=== PATIENT | female | born 1930 | race Caucasian/White ===

== ENCOUNTER 2018-03-15 17:50 | Emergency (ER) | payer MEDICARE, OTHER ==
[~2018-03-15] VITALS: Ht 165.1 cm; Wt 52.0 kg
[2018-03-15] MEDS ORDERED: SODIUM CHLORIDE 0.9% 1,000 ML IV ONE (19:10)
[2018-03-15] MEDS ORDERED: ONDANSETRON HCL 4MG/2ML INJ IV STA (19:10)
[2018-03-15] MEDS ORDERED: MORPHINE SULFATE 4 MG/ML CPJ (NOT FOR IM USE) IV STA (19:10)
[2018-03-15] MEDS ORDERED: MORPHINE SULFATE 2 MG/ML CPJ (NOT FOR IM USE) IV NR (19:45)
[2018-03-15 20:00] LABS: BASOPHILS % 0.2 % (0.0-2.0); CHLORIDE 104 mEq/L (98-107); HEMATOCRIT. 32.8 % (36.0-48.0); HEMOGLOBIN. 10.8 g/dL (12.0-16.0); LYMPHOCYTES % 7.2 % (20.0-50.0); MEAN CORPUSCULAR HEMOGLOBIN 29.8 pg (28.0-32.0); MEAN CORPUSCULAR VOLUME 90.3 fL (81.0-99.0); MEAN PLATELET VOLUME 9.2 fl (7.4-10.4); MONOCYTES % 11.5 % (2.0-8.0); NEUTROPHILS % 81.1 % (40.0-76.0); PLATELET 310 x1000/uL (130-400); RED BLOOD CELL COUNT 3.63 mill/uL (4.2-5.4)
[2018-03-15 20:01] LABS: INR 1.1; PROTHROMBIN TIME 10.8 sec (9.1-11.1)
[2018-03-16 03:00] VITALS: BP 127/67
== END 2018-03-16 03:01 | disposition short-term general hospital (02) ==
LOC: ER 18:17
DX: S72.142A Displaced intertrochanteric fracture of left femur, initial encounter for closed fracture (principal); I48.91 Unspecified atrial fibrillation; I10 Essential (primary) hypertension; Z86.73 Personal history of transient ischemic attack (TIA), and cerebral infarction without residual deficits; W18.39XA Other fall on same level, initial encounter; Y93.K1 Activity, walking an animal; Y92.89 Other specified places as the place of occurrence of the external cause; Y99.8 Other external cause status
CPT/HCPCS: 36415; 70450; 71045; 73502; 73552; 80048; 82962; 85025; 85610; 93005; 96374; 96375; 99285; J2270; J2405; J7030

== ENCOUNTER 2018-06-23 20:37 | Emergency (ER) | payer MEDICARE, OTHER ==
[~2018-06-23] VITALS: Ht 157.5 cm; Wt 40.9 kg
[2018-06-23 23:29] LABS: BASOPHILS % 0.7 % (0.0-2.0); EOSINOPHILS % 1.9 % (0.0-5.0); HEMATOCRIT. 32.6 % (36.0-48.0); HEMOGLOBIN. 10.9 g/dL (12.0-16.0); MEAN CORPUSCULAR VOLUME 89.2 fL (81.0-99.0); MEAN PLATELET VOLUME 7.7 fl (7.4-10.4); MONOCYTES % 11.6 % (2.0-8.0); NEUTROPHILS % 60.8 % (40.0-76.0); PLATELET 446 x1000/uL (130-400); RED BLOOD CELL COUNT 3.65 mill/uL (4.2-5.4)
[2018-06-23] MEDS ORDERED: DILTIAZEM HCL 5MG/ML 5ML VIAL IV ONE (23:30)
[2018-06-23] MEDS ORDERED: ASPIRIN 81MG TABLET PO ONE (23:30)
[2018-06-23 23:35] LABS: CHLORIDE 107 mEq/L (98-107)
[2018-06-24] MEDS ORDERED: DILTIAZEM HCL 90MG TABLET PO ONE
[2018-06-24 02:22] VITALS: BP 108/54
== END 2018-06-24 02:35 | disposition short-term general hospital (02) ==
LOC: ER 20:37 → CANBEDREQ 06-24 03:55
DX: I48.2 Chronic atrial fibrillation (principal); I11.0 Hypertensive heart disease with heart failure; I50.9 Heart failure, unspecified; F03.90 Unspecified dementia, unspecified severity, without behavioral disturbance, psychotic disturbance, mood disturbance, and anxiety; Z86.73 Personal history of transient ischemic attack (TIA), and cerebral infarction without residual deficits
CPT/HCPCS: 36415; 71045; 80053; 82962; 83880; 84484; 85025; 93005; 96374; 99291; J3490

== ENCOUNTER 2018-08-15 17:53 | Inpatient (IN) | payer MEDICARE, OTHER ==
[~2018-08-15] VITALS: Ht 152.4 cm; Wt 52.6 kg
[2018-08-15] MEDS ORDERED: MORPHINE SULFATE 4 MG/ML CPJ (NOT FOR IM USE) IV STA (18:36)
[2018-08-15] MEDS ORDERED: SODIUM CHLORIDE 0.9% 1000ML BAG (SEPSIS BOLUS) IV ONE (18:45)
[2018-08-15] MEDS ORDERED: PIPERACILLIN/TAZ 3.375G PREMIX 50 ML IV ONE (18:45)
[2018-08-15] MEDS ORDERED: VANCOMYCIN 1 G PREMIX 200 ML IV SCH (18:45)
[2018-08-15] MEDS ORDERED: LEVETIRACETAM 500MG PREMIX 100 ML IV ONE (18:45)
[2018-08-15 19:10] LABS: BASOPHILS % 0.6 % (0.0-2.0); EOSINOPHILS % 1.1 % (0.0-5.0); HEMATOCRIT. 33.1 % (36.0-48.0); LYMPHOCYTES % 13.7 % (20.0-50.0); MEAN CORPUSCULAR HEMOGLOBIN 29.8 pg (28.0-32.0); MEAN CORPUSCULAR VOLUME 89.8 fL (81.0-99.0); MEAN PLATELET VOLUME 8.2 fl (7.4-10.4); MONOCYTES % 9.7 % (2.0-8.0); NEUTROPHILS % 74.9 % (40.0-76.0); PLATELET 392 x1000/uL (130-400); RED BLOOD CELL COUNT 3.69 mill/uL (4.2-5.4); RED CELL DISTRIBUTION WIDTH 13.7 % (11.6-14.6)
[2018-08-15 19:14] LABS: CHLORIDE 109 mEq/L (98-107)
[2018-08-15] MEDS ORDERED: DILTIAZEM HCL 5MG/ML 5ML VIAL IV ONE ×2 (19:15→20:00)
[2018-08-15 19:16] LABS: INR 1.2; PROTHROMBIN TIME 11.9 sec (9.6-11.0)
[2018-08-15] MEDS ORDERED: DEXT 5%/0.9% NACL 1,000 ML IV ONE (23:00)
[2018-08-16] MEDS ORDERED: SODIUM CHLORIDE 0.9% 1,000 ML IV ONE (07:00)
[2018-08-16] MEDS ORDERED: LORAZEPAM 2MG/ML CPJ IV PRN (07:45)
[2018-08-16] MEDS ORDERED: LEVETIRACETAM 500 MG in SODIUM CHLORIDE 0.9% 100 ML IV SCH (07:45)
[2018-08-16] MEDS ORDERED: ONDANSETRON HCL 4MG/2ML INJ IV PRN (07:45)
[2018-08-16 09:41] LABS: T4 FREE 1.22 ng/dL (0.76-1.46)
[2018-08-16 10:00] VITALS: BP 100/53
[2018-08-16] MEDS ORDERED: DEXT 5%/0.45% NACL 1000ML 1,000 ML IV SCH (10:00)
[2018-08-16] MEDS ORDERED: DOCU-138 PO (11:10)
[2018-08-16] MEDS ORDERED: DILT60TA35 PO (11:10)
[2018-08-16] MEDS ORDERED: LORA-249 PO (11:10)
[2018-08-16] MEDS ORDERED: IPRA3AMP9 NEB (11:10)
[2018-08-16] MEDS ORDERED: SENN-170 PO (11:10)
[2018-08-16] MEDS ORDERED: MELA10TA2 PO (11:10)
[2018-08-16] MEDS ORDERED: LIP40 PO (11:10)
[2018-08-16] MEDS ORDERED: OMEP20CA5 PO (11:10)
[2018-08-16] MEDS ORDERED: POTA10CA42 PO (11:10)
[2018-08-16] MEDS ORDERED: QUET25TA PO (11:10)
[2018-08-16] MEDS ORDERED: DABI75CA3 PO (11:10)
[2018-08-16 12:00] VITALS: BP 107/52
[2018-08-16] MEDS: LEVETIRACETAM 500 MG in SODIUM CHLORIDE 0.9% 100 ML IV SCH ×2 (12:55→21:27)
[2018-08-16 14:00] VITALS: BP 105/80
[2018-08-16 16:00] VITALS: BP 118/82
[2018-08-16 20:00] VITALS: BP 123/66
[2018-08-16 20:36] LABS: CREATINE KINASE 36 IU/L (26-192)
[2018-08-16 20:37] LABS: CREATINE KINASE MB FRACTION < 1.0 ng/mL (0.5-3.6)
[2018-08-16 22:26] VITALS: BP 123/66
== END 2018-08-16 23:47 | disposition short-term general hospital (02) | DRG 871 ==
LOC: ER 17:53 → 5WST 22:49 → ENRESERV 08-16 07:09
PROVIDERS: ADMIT Internal Medicine; ATTEND Internal Medicine
DX: A41.9 Sepsis, unspecified organism (principal); G93.41 Metabolic encephalopathy; R65.21 Severe sepsis with septic shock; S02.31XA Fracture of orbital floor, right side, initial encounter for closed fracture; E44.0 Moderate protein-calorie malnutrition; E87.2 Acidosis; I48.91 Unspecified atrial fibrillation; F03.90 Unspecified dementia, unspecified severity, without behavioral disturbance, psychotic disturbance, mood disturbance, and anxiety; I10 Essential (primary) hypertension; Z66 Do not resuscitate; Z51.5 Encounter for palliative care; E87.6 Hypokalemia; D64.9 Anemia, unspecified; E87.8 Other disorders of electrolyte and fluid balance, not elsewhere classified; G40.909 Epilepsy, unspecified, not intractable, without status epilepticus; W18.39XA Other fall on same level, initial encounter; Z79.899 Other long term (current) drug therapy; I69.398 Other sequelae of cerebral infarction; Z68.22 Body mass index [BMI] 22.0-22.9, adult; Y93.89 Activity, other specified; Y92.89 Other specified places as the place of occurrence of the external cause; Y99.8 Other external cause status
CPT/HCPCS: 36415; 71045; 80061; 82550; 82553; 82962; 83036; 83605; 83880; 84145; 84439; 84443; 84484; 85379; 93005; 93306; 96374; 96375; 99291; C1893; J1953; J2270; J2543; J3370; J3490; J7030; J7042; J7050